=== PATIENT | male | born 1980 | race Caucasian/White ===

== ENCOUNTER 2022-02-11 13:13 | Outpatient (CLI) | payer MEDICARE, OTHER, SELFPAY | END 2022-02-11 13:14 | disposition home or self-care (01) | LOC: WOUND 13:15 | PROVIDERS: Visit Provider Nurse Practitioner Family | DX: L89.324 Pressure ulcer of left buttock, stage 4 (principal); L89.314 Pressure ulcer of right buttock, stage 4; L89.620 Pressure ulcer of left heel, unstageable; L89.893 Pressure ulcer of other site, stage 3; L89.894 Pressure ulcer of other site, stage 4; L89.154 Pressure ulcer of sacral region, stage 4 | CPT/HCPCS: 11042; 11045; 97597 ==

== ENCOUNTER 2022-02-17 13:53 | Outpatient (CLI) | payer MEDICARE, OTHER, SELFPAY | END 2022-02-17 13:54 | disposition home or self-care (01) | LOC: WOUND 13:53 | PROVIDERS: Visit Provider Nurse Practitioner Family | DX: L89.324 Pressure ulcer of left buttock, stage 4 (principal); L89.314 Pressure ulcer of right buttock, stage 4; L89.893 Pressure ulcer of other site, stage 3; L89.894 Pressure ulcer of other site, stage 4 | CPT/HCPCS: 11042; 11045; 17250 ==

== ENCOUNTER 2022-02-25 14:01 | Outpatient (CLI) | payer MEDICARE, OTHER, SELFPAY | END 2022-02-25 14:02 | disposition home or self-care (01) | PROVIDERS: Visit Provider Nurse Practitioner Family | DX: L89.324 Pressure ulcer of left buttock, stage 4 (principal); L89.894 Pressure ulcer of other site, stage 4; L89.314 Pressure ulcer of right buttock, stage 4 | CPT/HCPCS: 11042; 11045 ==

== ENCOUNTER 2022-03-10 13:52 | Outpatient (CLI) | payer MEDICARE, OTHER, SELFPAY | END 2022-03-10 13:53 | disposition home or self-care (01) | LOC: WOUND 13:53 | PROVIDERS: Visit Provider Nurse Practitioner Family | DX: L89.324 Pressure ulcer of left buttock, stage 4 (principal); L89.894 Pressure ulcer of other site, stage 4; L89.314 Pressure ulcer of right buttock, stage 4 | CPT/HCPCS: 11042; 11045 ==

== ENCOUNTER 2022-03-17 13:14 | Outpatient (CLI) | payer MEDICARE, OTHER, SELFPAY | END 2022-03-17 13:15 | disposition home or self-care (01) | LOC: WOUND 13:15 | PROVIDERS: Visit Provider Nurse Practitioner Family | DX: L89.154 Pressure ulcer of sacral region, stage 4 (principal); L89.314 Pressure ulcer of right buttock, stage 4; L89.324 Pressure ulcer of left buttock, stage 4; L89.894 Pressure ulcer of other site, stage 4 | CPT/HCPCS: 11042; 11045 ==

== ENCOUNTER 2022-03-31 13:19 | Outpatient (CLI) | payer MEDICARE, OTHER, SELFPAY | END 2022-03-31 13:20 | disposition home or self-care (01) | LOC: WOUND 13:19 | PROVIDERS: Visit Provider Nurse Practitioner Family | DX: L89.324 Pressure ulcer of left buttock, stage 4 (principal); L89.314 Pressure ulcer of right buttock, stage 4; L89.894 Pressure ulcer of other site, stage 4 | CPT/HCPCS: 11042; 11045 ==

== ENCOUNTER 2022-04-21 13:17 | Outpatient (CLI) | payer MEDICARE, OTHER, SELFPAY | END 2022-04-21 13:18 | disposition home or self-care (01) | LOC: WOUND 13:17 | PROVIDERS: Visit Provider Nurse Practitioner Family | DX: L89.324 Pressure ulcer of left buttock, stage 4 (principal); L89.314 Pressure ulcer of right buttock, stage 4 | CPT/HCPCS: 11042 ==

== ENCOUNTER 2022-05-26 13:03 | Outpatient (CLI) | payer MEDICARE, OTHER, SELFPAY | END 2022-05-26 13:04 | disposition home or self-care (01) | LOC: WOUND 13:04 | PROVIDERS: Visit Provider Nurse Practitioner Family | DX: L89.620 Pressure ulcer of left heel, unstageable (principal); L89.610 Pressure ulcer of right heel, unstageable; L89.893 Pressure ulcer of other site, stage 3; L89.320 Pressure ulcer of left buttock, unstageable; L89.310 Pressure ulcer of right buttock, unstageable | CPT/HCPCS: 11042 ==

== ENCOUNTER 2024-06-13 13:54 | Outpatient (CLI) | payer MEDICARE, OTHER, SELFPAY | END 2024-06-13 13:55 | disposition home or self-care (01) | LOC: WOUND 13:56 | PROVIDERS: Visit Provider Family Medicine | DX: L89.153 Pressure ulcer of sacral region, stage 3 (principal); L89.313 Pressure ulcer of right buttock, stage 3; G82.50 Quadriplegia, unspecified; Z99.3 Dependence on wheelchair | CPT/HCPCS: 11042; G0463 ==